=== PATIENT | female | born 1995 | race Caucasian/White ===

== ENCOUNTER → 2020-10-17 13:32 | Outpatient (CLI) | payer OTHER, SELFPAY ==
[2020-10-17 13:02] VITALS: BMI 31.8
[2020-10-17 15:19] LABS: Prolactin 9.5 ng/mL; T4 Free Direct 1.39 ng/dL (0.76-1.46); Thyroid Stim Hormone (TSH) 0.94 uIU/mL (0.358-3.74)
== END ==
PROVIDERS: Visit Provider Internal Medicine Endocrinology, Diabetes & Metabolism
DX: E06.3 Autoimmune thyroiditis (principal); E22.1 Hyperprolactinemia
CPT/HCPCS: 36415; 84146; 84439; 84443

== ENCOUNTER → 2020-12-05 14:58 | Outpatient (CLI) | payer OTHER, SELFPAY ==
[2020-10-17 13:02] VITALS: BMI 31.8
[2020-12-05 16:50] LABS: Prolactin 7.7 ng/mL; T4 Free Direct 1.01 ng/dL (0.76-1.46); Thyroid Stim Hormone (TSH) 0.93 uIU/mL (0.358-3.74)
== END ==
PROVIDERS: Referring Provider Internal Medicine Endocrinology, Diabetes & Metabolism; Visit Provider Internal Medicine Endocrinology, Diabetes & Metabolism
DX: E03.8 Other specified hypothyroidism (principal); E06.3 Autoimmune thyroiditis; E22.1 Hyperprolactinemia
CPT/HCPCS: 36415; 84146; 84439; 84443

== ENCOUNTER → 2021-04-17 14:40 | Outpatient (CLI) | payer OTHER, SELFPAY ==
[2021-04-17 16:16] LABS: Prolactin 42.3 ng/mL; Thyroid Stim Hormone (TSH) 0.68 uIU/mL (0.358-3.74)
== END ==
PROVIDERS: Visit Provider Internal Medicine Endocrinology, Diabetes & Metabolism
DX: E03.8 Other specified hypothyroidism (principal); E06.3 Autoimmune thyroiditis; E22.1 Hyperprolactinemia
CPT/HCPCS: 36415; 84146; 84439; 84443

== ENCOUNTER 2021-10-12 15:39 | Outpatient (CLI) | payer OTHER, SELFPAY ==
[2021-10-12 17:14] LABS: Absolute Lymphocyte Count 2.28 X10^3/uL (0.83-4.51); Absolute Neutrophil Count 7.7 X10^3/uL (2.0-7.7); Basophil# 0.02 X10^3/uL; Basophil% 0.2 % (0-1); Eosinophil# 0.07 X10^3/uL; Eosinophils% 0.7 % (0-5); Hematocrit 37.2 % (37-47); Hemoglobin 12.3 g/dL (12.0-15.0); Lymphocyte # 2.28 X10^3/ul (0.83-4.51); Lymphocyte % 21.3 % (19-41); Mean Corp Hgb Conc 33.1 g/dL (32-36); Mean Corpuscular Hgb 27.2 pg (27.0-32.0); Mean Corpuscular Volume 82.3 fL (81-99); Mean Platelet Vol. 11.3 fl (6.2-12.0); Monocyte# 0.61 X10^3/uL; Monocyte% 5.7 % (0-10); NRBC Flagged by Analyzer 0 % (0-5); Neutrophil # 7.67 X10^3/uL (2.7-7.7); Neutrophil % 71.8 % (47-70); Platelet Count 271 K/mm3 (150-450); RBC Distribution Width CV 14.7 % (11.6-14.6); RBC Distribution Width SD 43.7 fl (35.1-43.9); Red Blood Count 4.52 M/mm3 (4.2-5.4); White Blood Count 10.7 K/mm3 (4.4-11.0)
[2021-10-12 17:55] LABS: Internal QC Validated? YES +Cl - CLEAR BKGD; Pregnancy, Serum, hCG Quali. NEGATIVE Negative
[2021-10-12 21:09] LABS: Estradiol 138.5 pg/mL; Follicle Stimulating Hormone 1.6 mIU/mL; Prolactin 30.2 ng/mL; T4 Free Direct 1.07 ng/dL (0.76-1.46); Thyroid Stim Hormone (TSH) 0.83 uIU/mL (0.358-3.74)
[2021-10-18 10:10] LABS: Testosterone, % Free 1.93 % (0.50-2.80); Testosterone, Free 0.73 ng/dL (0.10-0.85); Testosterone, Total 38 ng/dL (13-71)
== END 2021-10-12 23:59 | disposition home or self-care (01) ==
PROVIDERS: Referring Provider Internal Medicine Endocrinology, Diabetes & Metabolism; Visit Provider Internal Medicine Endocrinology, Diabetes & Metabolism
DX: N91.2 Amenorrhea, unspecified (principal); E22.1 Hyperprolactinemia; N83.209 Unspecified ovarian cyst, unspecified side; E03.8 Other specified hypothyroidism; E06.3 Autoimmune thyroiditis; E55.9 Vitamin D deficiency, unspecified
CPT/HCPCS: 36415; 82306; 82627; 82670; 83001; 83002; 84146; 84402; 84403; 84439; 84443; 84703; 85025; 82626

== ENCOUNTER → 2022-04-13 | Outpatient (CLI) | payer OTHER, SELFPAY ==
[2022-04-13 17:26] LABS: Absolute Lymphocyte Count 2.42 X10^3/uL (0.83-4.51); Absolute Neutrophil Count 7.5 X10^3/uL (2.0-7.7); Basophil# 0.03 X10^3/uL; Basophil% 0.3 % (0-1); Eosinophil# 0.04 X10^3/uL; Eosinophils% 0.4 % (0-5); Hematocrit 37.4 % (37-47); Hemoglobin 12.2 g/dL (12.0-15.0); Lymphocyte # 2.42 X10^3/ul (0.83-4.51); Lymphocyte % 22.4 % (19-41); Mean Corp Hgb Conc 32.6 g/dL (32-36); Mean Corpuscular Hgb 26.8 pg (27.0-32.0); Mean Platelet Vol. 10.6 fl (6.2-12.0); Monocyte# 0.82 X10^3/uL; Monocyte% 7.6 % (0-10); NRBC Flagged by Analyzer 0 % (0-5); Neutrophil # 7.47 X10^3/uL (2.7-7.7); Platelet Count 285 K/mm3 (150-450); RBC Distribution Width CV 14.5 % (11.6-14.6); RBC Distribution Width SD 43.1 fl (35.1-43.9); Red Blood Count 4.56 M/mm3 (4.2-5.4); White Blood Count 10.8 K/mm3 (4.4-11.0)
[2022-04-13 17:56] LABS: ALB/GLOB Ratio 1.1 RATIO (0.9-2.4); AST(SGOT) 12 U/L (15-37); Alanine Aminotransfer ALT/SGPT 17 U/L (13-56); Alkaline Phosphatase 74 U/L (45-117); Anion Gap 7 (5-15); BUN 11 mg/dL (7-18); BUN/Creat Ratio 11.3 RATIO (10-20); Chloride 107 mmol/L (98-107); Creatinine, Serum 0.98 mg/dL (0.55-1.02); EST Glomerular Filtration Rate 74 mL/min (>60); Est Glom Filt Rate - Afr Amer 89 mL/min (>60); Ferritin 7 ng/mL (8-252); Globulin 3.5 g/dL (2.2-4.2); Glucose 90 mg/dL (74-106); Potassium 3.8 mmol/L (3.5-5.1); Prolactin 20.1 ng/mL; Protein, Total 7.5 g/dL (6.4-8.2); Sodium Level 139 mmol/L (136-145); T4 Free Direct 1.11 ng/dL (0.76-1.46)
[2022-04-16 09:40] LABS: Vitamin B12 384 pg/mL (211-911)
[2022-04-16 16:09] LABS: Endomysial Antibody IgA Negative (Negative)
[2022-04-18 13:51] LABS: Immunoglobulin A 128 mg/dL (87-352); t-Transglutaminase IgA <2 U/mL (0-3)
== END | disposition home or self-care (01) ==
LOC: LAB 16:42
PROVIDERS: PCP Internal Medicine; Referring Provider Internal Medicine Endocrinology, Diabetes & Metabolism; Visit Provider Internal Medicine Endocrinology, Diabetes & Metabolism
DX: R21 Rash and other nonspecific skin eruption (principal); E22.1 Hyperprolactinemia; R53.83 Other fatigue; E03.8 Other specified hypothyroidism; E06.3 Autoimmune thyroiditis
CPT/HCPCS: 36415; 80053; 82607; 82728; 82784; 83516; 84146; 84439; 84443; 85025; 86255